=== PATIENT | male | born 1995 | race Caucasian/White ===

== ENCOUNTER 2019-09-24 19:03 | Emergency (ER) | payer OTHER ==
[~2019-09-24] VITALS: Ht 177.8 cm; Wt 90.0 kg
[2019-09-24 19:08] VITALS: BP 140/91
[2019-09-24 19:47] LABS: BASOPHILS % (AUTO) 0.4 % (0-1); LYMPHOCYTES # (AUTO) 1.5 X10'3 (1.1-4.8); MEAN CORPUSCULAR HGB CONC 34.4 g/dL (33.0-36.5); MONOCYTES # (AUTO) 0.9 X10'3 (0-0.9); PLATELET COUNT 209 X10'3 (140-440); RED CELL DISTRIBUTION WIDTH 12.6 % (11.5-14.5); WHITE BLOOD COUNT 7.1 X10'3 (4.5-11.0)
[2019-09-24 19:49] LABS: EOSINOPHILS % (AUTO) 0.3 % (0-6); HEMATOCRIT 45.1 % (42.0-52.0); HEMOGLOBIN 15.5 g/dl (14.0-17.9); LYMPHOCYTES % (AUTO) 21.4 % (21-51); MEAN CORPUSCULAR HEMOGLOBIN 27.4 PG (27.0-31.0); MEAN CORPUSCULAR VOLUME 79.6 FL (78-98); MEAN PLATELET VOLUME 7.4 FL (7.4-10.4); MONOCYTES % (AUTO) 13.1 % (2-12); NEUTROPHILS # (AUTO) 4.6 X10'3 (1.8-7.7); NEUTROPHILS % (AUTO) 64.8 % (42-75); RED BLOOD COUNT 5.67 X10'6 (4.70-6.10)
[2019-09-24 20:01] LABS: ALANINE AMINOTRANSFERASE 26 U/L (12-78); ALBUMIN/GLOBULIN RATIO 0.9 (1.1-1.5); ALKALINE PHOSPHATASE 73 IU/L (46-116); ANION GAP 13 (8-16); ASPARTATE AMINO TRANSFERASE 28 U/L (10-37); BILIRUBIN,TOTAL 0.8 MG/DL (0.1-1.0); BLOOD UREA NITROGEN 14 MG/DL (7-18); BUN/CREATININE RATIO 9.8 (5.4-32.0); CHLORIDE 97 MMOL/L (99-107); CREATININE 1.43 MG/DL (0.60-1.10); GLUCOSE 105 MG/DL (70-104); LIPASE 106 U/L (73-393); SODIUM 134 MMOL/L (135-145); TOTAL CARBON DIOXIDE 24.2 MMOL/L (24-32); TOTAL PROTEIN 8.5 G/DL (6.4-8.2); eGFR 60 ML/MIN
[2019-09-24] MEDS ORDERED: normal saline 1000ml 1,000 ML IV ONE ×2 (20:05)
[2019-09-24] MEDS ORDERED: diphenhydrAMINE 50 mg/ml inj IV ONE (20:05)
[2019-09-24] MEDS ORDERED: proCHLORperazine 10 MG/2 ml inj IM ONE (20:05)
[2019-09-24] MEDS ORDERED: potassium Cl 20 mEq SR tablet PO ONE (20:15)
[2019-09-24] MEDS ORDERED: famotidine 20mg tablet PO ONE (20:35)
[2019-09-24] MEDS ORDERED: PANT20TA3 PO (20:43)
[2019-09-24] MEDS ORDERED: ONDA4TAB6 PO (20:43)
== END 2019-09-24 21:18 | disposition home or self-care (01) ==
LOC: ER 19:04
DX: K29.00 Acute gastritis without bleeding (principal); R11.2 Nausea with vomiting, unspecified; Z79.899 Other long term (current) drug therapy
CPT/HCPCS: 74176; 80053; 83690; 85025; 96372; 96374; 99284; J0780; J1200; J7030